=== PATIENT | female | born 1970 | race African-American/Black ===

== ENCOUNTER 2024-02-29 15:54 | Emergency (ER) | payer MEDICAID, MEDICARE ==
[~2024-02-29] VITALS: Ht 167.6 cm; Wt 106.6 kg
[2024-02-29] MEDS: ACETAMINOPHEN 325 MG TAB PO ONE (18:02)
[2024-02-29 18:08] LABS: BASO % 0.4 % (0.0-1.0); EOS # 0.1 10^3/uL (0.0-0.5); EOS % 1.5 % (0.0-3.0); HEMATOCRIT 39.4 % (36.0-47.0); LYMPH # 2.3 10^3/uL (1.5-5.0); LYMPH % 41.6 % (24.0-44.0); MEAN CORPUSCULAR VOLUME 78.8 fl (80.0-96.0); MONO # 0.4 10^3/uL (0.0-0.8); MONO % 8.1 % (2.0-8.0); NEUTROPHILS # 2.6 10^3/uL (1.5-8.5); NEUTROPHILS % 48.2 % (36.0-66.0); PLATELET COUNT, AUTOMATED 267 10^3/uL (150-450); WHITE BLOOD COUNT 5.4 10^3/uL (4.0-10.0)
[2024-02-29 18:57] LABS: CK-MB VALUE MASS < 1.0 NG/ML (<3.6)
[2024-02-29 18:58] LABS: LIPASE 24 U/L (12-53)
[2024-02-29 19:00] LABS: ALBUMIN 3.6 G/DL (3.2-5.2); ALKALINE PHOSPHATASE 80 U/L (35-104); ALT/SGPT 38 U/L (7.0-40); AST/SGOT 23 U/L (<34); BILIRUBIN,DIRECT < 0.1 MG/DL (<0.4); BILIRUBIN,TOTAL 0.3 MG/DL (0.3-1.2); BLOOD UREA NITROGEN 9 MG/DL (9-23); CARBON DIOXIDE LEVEL 31 MMOL/L (20-31); CHLORIDE LEVEL 105 MMOL/L (98-107); CREATININE FOR GFR 0.62 MG/DL (0.55-1.30); GLOMERULAR FILTRATION RATE > 60.0 (>51); GLUCOSE, FASTING 87 MG/DL (60-100); SODIUM LEVEL 142 MMOL/L (136-145); TOTAL PROTEIN 7.2 G/DL (5.7-8.2)
[2024-02-29 19:02] LABS: CPK CREATINE PHOSPHOKINASE 131 U/L (34-145); FREE T4 0.98 NG/DL (0.89-1.76); MB/CK RELATIVE INDEX 0.76 (< OR =4)
[2024-02-29] MEDS ORDERED: ACET-683 PO (19:33)
[2024-02-29 19:40] VITALS: BP 146/90; TEMP 97.8; O2SAT 98
== END 2024-02-29 19:53 | disposition home or self-care (01) ==
LOC: M ED 15:54
DX: R07.89 Other chest pain (principal); R51.9 Headache, unspecified

== ENCOUNTER 2024-07-28 14:47 | Emergency (ER) | payer MEDICAID, SELFPAY ==
[~2024-07-28] VITALS: Ht 160 cm; Wt 74.7 kg
[~2024-07-28 14:47] MED LIST: ACET-683 PO
[2024-07-28] MEDS ORDERED: HOME MED LIST COMPLETE! XX SCH (15:25)
[2024-07-28] MEDS: SUCRALFATE 1 GM TAB PO ONE (19:03)
[2024-07-28] MEDS: MAALOX 30 ML SUSP *UDC PO ONE (19:03)
[2024-07-28 19:07] LABS: BASO % 0.2 % (0.0-1.0); EOS # 0.1 10^3/uL (0.0-0.5); HEMOGLOBIN 12.3 g/dl (12.0-15.5); LYMPH # 2.5 10^3/uL (1.5-5.0); LYMPH % 46.3 % (24.0-44.0); MEAN CORPUSCULAR HEMOGLOBIN 26.5 pg (27.0-33.0); MEAN CORPUSCULAR HGB CONC 33.2 g/dl (32.0-36.5); MEAN CORPUSCULAR VOLUME 79.6 fl (80.0-96.0); MONO # 0.4 10^3/uL (0.0-0.8); MONO % 7.7 % (2.0-8.0); NEUTROPHILS # 2.4 10^3/uL (1.5-8.5); NEUTROPHILS % 43.6 % (36.0-66.0); PLATELET COUNT, AUTOMATED 255 10^3/uL (150-450); RED BLOOD COUNT 4.65 10^6/uL (4.00-5.40); WHITE BLOOD COUNT 5.4 10^3/uL (4.0-10.0)
[2024-07-28 19:38] LABS: ALBUMIN 3.5 G/DL (3.2-5.2); ALKALINE PHOSPHATASE 81 U/L (35-104); ALT/SGPT 27 U/L (7.0-40); AST/SGOT 35 U/L (<34); BILIRUBIN,DIRECT < 0.1 MG/DL (<0.4); BILIRUBIN,TOTAL 0.2 MG/DL (0.3-1.2); BLOOD UREA NITROGEN 13 MG/DL (9-23); CALCIUM LEVEL 9.2 MG/DL (8.5-10.1); CARBON DIOXIDE LEVEL 28 MMOL/L (20-31); CHLORIDE LEVEL 104 MMOL/L (98-107); CREATININE FOR GFR 0.77 MG/DL (0.55-1.30); GLOMERULAR FILTRATION RATE > 90.0 (>51); GLUCOSE, FASTING 102 MG/DL (60-100); LIPASE 41 U/L (12-53); POTASSIUM SERUM 5.6 MMOL/L (3.5-5.1); SODIUM LEVEL 139 MMOL/L (136-145); TOTAL PROTEIN 6.8 G/DL (5.7-8.2)
[2024-07-28] MEDS ORDERED: MIRA3350 PO (21:19)
[2024-07-28] MEDS ORDERED: [UNRECOGNIZED DRUG - CODE] EX (21:19)
[2024-07-28] MEDS ORDERED: IBUP-1022 PO (21:19)
[2024-07-28 21:35] VITALS: BP 176/103; TEMP 98; O2SAT 100
== END 2024-07-28 21:43 | disposition home or self-care (01) ==
LOC: M ED 14:47
DX: B36.0 Pityriasis versicolor (principal); K59.00 Constipation, unspecified; K64.9 Unspecified hemorrhoids; M79.606 Pain in leg, unspecified

== ENCOUNTER 2024-10-10 11:09 | Emergency (ER) | payer OTHER, SELFPAY ==
[~2024-10-10] VITALS: Ht 162.6 cm; Wt 113.6 kg
[~2024-10-10 11:09] MED LIST changes: +IBUP-1022 PO; +MIRA3350 PO; +[UNRECOGNIZED DRUG - CODE] EX
[2024-10-10] MEDS: ACETAMINOPHEN 500 MG TAB PO ONE (14:06)
[2024-10-10] MEDS: LIDOCAINE 5% PATCH TD ONE (14:06)
[2024-10-10] MEDS: KETOROLAC 30 MG/ML 1 ML VIAL IM ONE (14:28)
[2024-10-10 15:41] VITALS: BP 163/87; TEMP 97.6; O2SAT 97
[2024-10-10] MEDS ORDERED: MEDR4PAK PO (16:11)
[2024-10-10] MEDS ORDERED: METH-1165 PO (16:11)
== END 2024-10-10 16:19 | disposition home or self-care (01) ==
LOC: M ED 11:09
DX: M54.50 Low back pain, unspecified (principal); M25.552 Pain in left hip; Z79.899 Other long term (current) drug therapy
CPT/HCPCS: 73502; 96372; 99284; J1885